=== PATIENT | female | born 1980 | race Caucasian/White ===

== ENCOUNTER → 2016-04-04 | Day surgery (SDC) | payer OTHER ==
[~2016-04-04] MED LIST: DEXAMETHASONE 4 MG/ML VIAL ONE; FLU VACC QS 2016-17(3-64YR)/PF 0.5 ML SYR (FLUARIX QUAD) IM ONE; KETOROLAC 30 MG/1 ML SDV ONE; LIDOCAINE 1% 30 ML SDV MISC ONE; LIDOCAINE 2% 5 ML SDV ONE; MIDAZOLAM 2 MG/2 ML VIAL IVP ONE; PROPOFOL 200 MG/20 ML VIAL ONE; fentaNYL 100 MCG/2 ML INJ ONE
--- NOTE | 2016-04-04 12:36 | GOP ---
[f rep st] OPERATIVE REPORT DATE OF OPERATION: 04/04/2016 SURGEON: Jordyn Cardona MD LEGAL TRANSCRIPTIONIST: None. ANESTHESIA: Sedation. PREOPERATIVE DIAGNOSIS: Missed at 9 weeks gestation. POSTOPERATIVE DIAGNOSIS: Missed at 9 weeks gestation. PROCEDURE PERFORMED: Suction dilation and curettage. FINDINGS: 1. Products of conception. 2. demise at 9 weeks. SPECIMENS: Products of conception. ESTIMATED BLOOD LOSS: Less than 10 mL. INDICATIONS: The patient is a 36-year-old G2, P1 female who at 9 and 4/7 weeks gestation was noted to have a missed . Options were discussed with the patient. She desired surgical management. DESCRIPTION OF PROCEDURE: The patient was taken to the operating room. She was prepped and draped in normal sterile fashion in the high dorsal lithotomy position. A surgical timeout was performed, verifying the patient's name, date of , planned procedure, and site. The bivalve speculum was placed in the patient's vagina. The anterior aspect of the cervix was grasped with a single- tooth tenaculum. The patient received a paracervical block with 1% lidocaine 10 mL. The cervix was dilated to 9 mm. A curved 9 mm suction curette placed into the uterine cavity and the uterine contents were aspirated. Sharp endometrial curettage took place with the curette to ensure there were no retained products of conception. The suction curette was placed into the uterine cavity one last time to ensure there were products of conception. The bivalve speculum was then removed and the single-tooth tenaculum was removed. Hemostasis was obtained. Products were sent to pathology. The patient tolerated the procedure well. COMPLICATIONS: None. DISPOSITION: Stable to recovery. /[id number]/MODL MTDD
== END | disposition home or self-care (01) ==
LOC: FOBOP 05:54
PROVIDERS: ATTEND Obstetrics & Gynecology
PROC: 10D17ZZ Extraction of Products of Conception, Retained, Via Natural or Artificial Opening (ICD-10-PCS; principal; 2016-04-04)
DX: O02.1 Missed abortion (principal); O99.341 Other mental disorders complicating pregnancy, first trimester; O09.521 Supervision of elderly multigravida, first trimester; Z3A.09 9 weeks gestation of pregnancy; F41.8 Other specified anxiety disorders; F31.9 Bipolar disorder, unspecified
CPT/HCPCS: J1100; J1885; J2250; J2704; J3010

== ENCOUNTER 2016-07-03 20:12 | Emergency (ER) | payer OTHER ==
[2016-07-03 20:25] VITALS: BP 164/107; PULSE 86; RESP 16; TEMP 98.2; O2SAT 95
--- NOTE | 2016-07-03 20:30 | EDPHY ---
HPI/HX/ROS/PE/MDM Narrative: CHIEF COMPLAINT: Foreign object in nose HISTORY OF PRESENT ILLNESS: The patient is a 36-year-old female presenting with a possible foreign body in her nose. The patient was out on a run and when she stopped running she started continuously sneezing. She feels like something is stuck in the right naris. She has a poking and tickling sensation. The right side of her nose continues to drain. She is able to breath normally. She wonders if a yolanda or a bug got into her nose. REVIEW OF SYSTEMS: Aside from elements discussed in the HPI, a comprehensive 10-point review of systems was reviewed and is negative. PAST MEDICAL HISTORY: Bipolar disorder. SOCIAL HISTORY: . Lives in [place]. VITAL SIGNS: Reviewed by me GENERAL: Well-developed, well-nourished, resting comfortably in no respiratory distress. HEENT: Atraumatic. Eyes: No icterus, no injection. Mouth: moist mucous membranes. No erythema or lesions. Nose: Right naris was examined utilizing the nasal speculum, headlamp, and suction. No foreign bodies visualized. There is a very tender, swollen, pale area of the mucosa on the lateral aspect which is where the patient reports feeling her discomfort. EXTREMITIES: Normal range of motion. NEURO: Alert and oriented, grossly nonfocal. SKIN: Warm and dry, no rash. PSYCHIATRIC: Normal mentation, no agitation. Portions of this note were transcribed by a faculty i on call medical assistant. I personally performed a history, physical exam, medical decision making, and confirmed accuracy of information the transcribed note. ED Course: The patient presents with a foreign body sensation in her right naris. I used a fiberoptic headlamp to inspect the patients naris. No foreign body visualized. The mucosal membrane appears white and swollen. I recommend the patient use antibiotic ointment and Afrin to decrease swelling. I referred the patient to ENT for continued symptoms. MDM: 36-year-old female who presents following a run where she felt like something became lodged in her nose. She has a pricking sensation and reports that the nose continues to run. On examination it appears that perhaps there was an area of irritation or a bug bite which occurred along the lateral nasal mucosa. There is a swollen tender area. I do not see a foreign body. Patient was given instructions regarding local care of the area. She will follow up with ENT if she is not improving rapidly. General Time Seen by Provider: 07/03/16 20:21 Initial Vital Signs: Initial Vital Signs Temperature (C) 36.8 C 07/03/16 20:20 Heart Rate 86 07/03/16 20:20 Respiratory Rate 16 07/03/16 20:20 Blood Pressure 164/107 H 07/03/16 20:20 O2 Sat (%) 95 07/03/16 20:20 O2 Delivery Mode Room Air Allergies/Adverse Reactions: amoxicillin [Amoxicillin] Allergy (Mild, Verified 03/25/16 19:14) Penicillins Allergy (Mild, Verified 03/25/16 19:14) prochlorperazine edisylate [From Compazine] Allergy (Mild, Verified 03/25/16 19: 14) prochlorperazine maleate [From Compazine] Allergy (Mild, Verified 03/25/16 19:14 ) Sulfa (Sulfonamide Antibiotics) Allergy (Mild, Verified 03/25/16 19:14) hydrocodone bitartrate [From Vicodin] Allergy (Verified 03/25/16 19:14) metoclopramide HCl [From Reglan] Allergy (Verified 03/25/16 19:14) ondansetron Allergy (Verified 03/25/16 19:14) ondansetron HCl [From Zofran (as hydrochloride)] Allergy (Verified 03/25/16 19: 14) oxycodone HCl [From Percocet] Allergy (Verified 03/25/16 19:14) promethazine HCl [From Phenergan] Allergy (Verified 03/25/16 19:14) Home Medications: Medication Instructions Recorded lamOTRIGine [Lamotrigine] 150 mg PO HS 10/22/12 Departure - Departure Disposition: Home, Routine, Self-Care Clinical Impression: Inflammation of nasal mucosa Qualifiers: Rhinitis type: unspecified Qualified Code(s): J31.0 - Chronic rhinitis Condition: Good Instructions: Oxymetazoline (Into the nose), Allergic Rhinitis (ED) Additional Instructions: 1. Use a Q-tip with antibiotic cream in your right nostril. 2. Try Afrin nasal spray to help with swelling. 3. You have been referred to [facility] ear, nose, [facility] specialists. Please followup with ENT if you continue to have concerns tomorrow. Referrals: Alecia Lockwood MD [Primary Care Provider] - As per Instructions Carlos Calabrese MD [Medical Doctor] - As per Instructions Aye Barbour MD [Medical Doctor] - As per Instructions
== END 2016-07-03 20:52 | disposition home or self-care (01) ==
DX: J31.0 Chronic rhinitis (principal)

== ENCOUNTER 2016-09-14 16:33 | Emergency (ER) | payer OTHER ==
[2016-09-14 16:40] VITALS: O2SAT 98
[2016-09-14] MEDS ORDERED: NS 1,000 ML IV ONE (16:57)
[2016-09-14 17:16] LABS: % IMMATURE GRANULYOCYTES 0.4 % (0.0-1.1); ABSOLUTE IMMATURE GRANULOCYTES 0.04 10^3/uL (0.00-0.10); ADD DIFF? NO; ADD MORPH? NO; ADD SCAN? NO; ATYPICAL LYMPHOCYTE FLAG 10 (0-99); FRAGMENT RBC FLAG 0 (0-99); HEMATOCRIT 39.8 % (38.0-47.0); HEMOGLOBIN 13.5 g/dL (12.6-16.3); LEFT SHIFT FLG 0 (0-99); LIPEMIA HEMOLYSIS FLAG 90 (0-99); MEAN CELL HEMOGLOBIN 30.5 pg (27.9-34.1); MEAN CELL HEMOGLOBIN CONCENTR. 33.9 g/dL (32.4-36.7); MEAN CELL VOLUME 89.8 fL (81.5-99.8); MEAN PLATELET VOLUME 10.2 fL (8.7-11.7); PLATELET CLUMPS FLAG 0 (0-99); PLATELET COUNT 226 10^3/uL (150-400); RED BLOOD CELL COUNT 4.43 10^6/uL (4.18-5.33); RED CELL DISTRIBUTION WIDTH 12.2 % (11.5-15.2)
[2016-09-14 17:37] LABS: ANION GAP 10 mEq/L (8-16); CALCIUM 9.6 mg/dL (8.5-10.4); CARBON DIOXIDE 21 mEq/l (22-31); CHLORIDE 104 mEq/L (97-110); CREATININE 0.6 mg/dL (0.6-1.0); GLOMERULAR FILTRATION RATE > 60; GLUCOSE 83 mg/dL (70-100); POTASSIUM 3.8 mEq/L (3.5-5.2); SODIUM 135 mEq/L (134-144)
--- NOTE | 2016-09-14 18:38 | EDPHY ---
H & P Time Seen by Provider: 09/14/16 16:42 HPI/ROS: CHIEF COMPLAINT: Nausea, vomiting, dehydration HISTORY OF PRESENT ILLNESS: This is a 36-year-old female who reports that she is approximately 8 weeks presenting with ongoing nausea and vomiting. 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 She is , prior . Reports having significant nausea vomiting previously. No fevers or chills. No cough. No diarrhea. No abdominal pain, no cramping, no vaginal bleeding. No urinary complaints. REVIEW OF SYSTEMS: Aside from elements discussed in the HPI, a comprehensive 10-point review of systems was reviewed and is negative. PAST MEDICAL HISTORY: Bipolar disorder, SOCIAL HISTORY: Nonsmoker. Here with a friend. VITAL SIGNS Reviewed by me. GENERAL: Well-developed, well-nourished, resting comfortably in no respiratory distress. Complaining of significant nausea. HEENT: Atraumatic. Eyes: No icterus, no injection. Mouth: Slightly dry mucous membranes. No erythema or lesions. Neck: supple with no adenopathy. LUNGS: Clear to auscultation bilaterally, no wheezes, rhonchi or rales. CARDIAC: Regular rate and rhythm, no rubs, murmurs or gallops. ABDOMEN: Soft, nontender, nondistended, bowel sounds normal. BACK: No CVA tenderness. EXTREMITIES: No trauma. No edema. Range of motion is normal throughout. NEURO: Alert and oriented, grossly nonfocal. SKIN: Warm and dry, no rash. PSYCHIATRIC: Normal mentation, no agitation. Smoking Status: Never smoked Constitutional: Initial Vital Signs Temperature (C) 36.8 C 09/14/16 16:38 Heart Rate 58 L 09/14/16 16:38 Respiratory Rate 16 09/14/16 16:38 Blood Pressure 117/93 H 09/14/16 16:38 O2 Sat (%) 98 09/14/16 16:38 O2 Delivery Mode Room Air Allergies/Adverse Reactions: ondansetron HCl [From Zofran (as hydrochloride)] Allergy (Intermediate, Verified 09/17/16 11:47) twitch,itchy,tachycardia promethazine HCl [From Phenergan] Allergy (Intermediate, Verified 09/17/16 11:47 ) amoxicillin [Amoxicillin] Allergy (Mild, Verified 09/17/16 11:47) metoclopramide HCl [From Reglan] Allergy (Mild, Verified 09/17/16 11:47) shakey legs, itch Penicillins Allergy (Mild, Verified 09/17/16 11:47) prochlorperazine edisylate [From Compazine] Allergy (Mild, Verified 09/17/16 11: 47) prochlorperazine maleate [From Compazine] Allergy (Mild, Verified 09/17/16 11:47 ) Sulfa (Sulfonamide Antibiotics) Allergy (Mild, Verified 09/17/16 11:47) hydrocodone bitartrate [From Vicodin] Allergy (Verified 09/17/16 11:47) ondansetron Allergy (Verified 09/17/16 11:47) oxycodone HCl [From Percocet] Allergy (Verified 09/17/16 11:47) Home Medications: Medication Instructions Recorded Ondansetron Odt [Zofran Odt 4 mg 4 mg PO Q4 PRN 09/19/16 (*)] diphenhydrAMINE [Benadryl 25 MG 25 mg PO DAILY PRN 09/19/16 (*)] lamoTRIgine [Lamictal] 150 mg PO HS 09/19/16 Medical Decision Making ED Course/Re-evaluation: IV was established in the patient received normal saline. Beta HCG was checked and is 99,881. Patient received Benadryl for her nausea. Labs demonstrate CO2 21. Patient's nausea was improved. She received a 2nd L normal saline was able to tolerate oral sips and small bites of crackers. We discussed symptomatic treatment for hyperemesis. She was encouraged to use B6 supplements. Differential Diagnosis: Differential diagnosis of the patient's nausea and vomiting was considered including but not limited to gastroenteritis, gastritis, alcohol intoxication, withdrawal symptoms, hyperemesis gravidarum, vomiting in , intraabdominal processes including appendicitis, pancreatitis, bowel obstruction and medication side effect. - Data Points Laboratory Results: Laboratory Results 09/14/16 17:10 09/14/16 17:10 Medications Given: Discontinued Medications Diphenhydramine HCl (Benadryl Injection) 25 mg IVP EDNOW ONE Stop: 09/14/16 17:30 Last Admin: 09/14/16 17:55 Dose: 25 mg Sodium Chloride (Ns) 1,000 mls @ 0 mls/hr IV ONCE ONE; Wide Open PRN Reason: Protocol Stop: 09/14/16 16:58 Last Admin: 09/14/16 17:00 Dose: 1,000 mls Departure - Departure Disposition: Home, Routine, Self-Care Clinical Impression: Hyperemesis gravidarum Nausea and vomiting Qualifiers: Vomiting type: unspecified Vomiting Intractability: non-intractable Qualified Code(s): R11.2 - Nausea with vomiting, unspecified Condition: Good Instructions: Pyridoxine (By mouth), Hyperemesis Gravidarum (ED) Additional Instructions: Please follow up with Dr. Slava Oseguera as previously scheduled. You been given information regarding nausea and vomiting in and dehydration. I recommend Benadryl 25 mg every 6-8 hours to control nausea. I also recommend pyridoxine (vitamin B6) 10-25 mg orally every 6-8 hours. Return to the emergency department or seek care urgently if you are continue to have significant vomiting despite the above measures, develops a fever, or other concerns. Referrals: Alecia Lockwood MD [Primary Care Provider] - As per Instructions
[2016-09-14 19:11] VITALS: BP 119/49; PULSE 55; RESP 14
[2016-09-14 19:23] VITALS: TEMP 98.6
== END 2016-09-14 19:24 | disposition home or self-care (01) ==
DX: O21.0 Mild hyperemesis gravidarum (principal); Z3A.08 8 weeks gestation of pregnancy
CPT/HCPCS: 96374; J1200

== ENCOUNTER 2016-09-17 10:18 | Emergency (ER) | payer OTHER ==
[2016-09-17 10:29] VITALS: BP 135/72; PULSE 70; RESP 18; TEMP 98.4; O2SAT 97
== END 2016-09-17 11:00 | disposition left against medical advice (07) ==
DX: Z53.21 Procedure and treatment not carried out due to patient leaving prior to being seen by health care provider (principal)

== ENCOUNTER 2016-09-17 11:41 | Emergency (ER) | payer OTHER ==
[2016-09-17] MEDS ORDERED: D5W LR 1,000 ML IV SCH (15:00)
[2016-09-17] MEDS ORDERED: LORazepam 2 MG/ML INJ IVP ONE (15:09)
[2016-09-17] MEDS ORDERED: D5W LR 1,000 ML IV ONE (15:15)
--- NOTE | 2016-09-17 15:32 | EDPHY ---
H & P Time Seen by Provider: 09/17/16 14:20 HPI/ROS: CHIEF COMPLAINT: 8 weeks , nausea vomiting HISTORY OF PRESENT ILLNESS: 36-year-old female presents to the emergency department by private vehicle with multiple episodes of nausea and vomiting. She is approximately 8 weeks with LMP of 07/22/2016. She is unsure of her due date. She is followed by Dr. Jordyn Cardona who has performed recent laboratory studies and ultrasound on this patient. She was sent to the emergency department for IV hydration specifically with D5 LR and Dr. Slava Cardona I recommended that we give the patient IV lorazepam. Patient has no abdominal pain. No vaginal discharge. No vaginal bleeding. No back pain. She is 2 para 1 AB1 and had a spontaneous miscarriage at 13 weeks with her 2nd . Denies back pain. No chest pain or difficulty breathing. No urinary symptoms. REVIEW OF SYSTEMS: Constitutional: No fever, no chills. Eyes: No double or blurry vision. ENT: No sore throat. Respiratory: No cough, no shortness of breath. Cardiac: No chest pain. Gastrointestinal: Nausea and vomiting, 12 times today. No abdominal pain or diarrhea. Genitourinary: Urinating normally. No dysuria. Musculoskeletal: No neck or back pain. Skin: No rashes. Neurological: No headache. Past Medical/Surgical History: 3 para 1 AB1 Social History: Smoking Status: Never smoked Physical Exam: General Appearance: Alert, no distress. No apparent distress. Vital signs are stable. Eyes: Pupils equal and round. Extraocular motions are all intact. ENT: Mouth: Mucous membranes moist Respiratory: No wheezing, rhonchi, or rales, lungs are clear to auscultation. Cardiovascular: Regular rate and rhythm. Gastrointestinal: Abdomen is soft and nontender, no masses, no rebound or guarding, bowel sounds normal. No CVA tenderness bilaterally. Neurological: Alert and oriented x 3, cranial nerves II through XII grossly intact Skin: Warm and dry, no rashes. Musculoskeletal: Nontender to palpate along the cervical, thoracic or lumbar spine. Neck is supple. Extremities: Full range of motion and no peripheral edema. Psychiatric: Patient is oriented X 3, there is no agitation. Constitutional: Initial Vital Signs Temperature (C) 36.4 C 09/17/16 11:47 Heart Rate 75 09/17/16 11:47 Respiratory Rate 18 09/17/16 11:47 Blood Pressure 126/51 H 09/17/16 11:47 O2 Sat (%) 98 09/17/16 11:47 O2 Delivery Mode Room Air Allergies/Adverse Reactions: ondansetron HCl [From Zofran (as hydrochloride)] Allergy (Intermediate, Verified 09/17/16 11:47) twitch,itchy,tachycardia promethazine HCl [From Phenergan] Allergy (Intermediate, Verified 09/17/16 11:47 ) amoxicillin [Amoxicillin] Allergy (Mild, Verified 09/17/16 11:47) metoclopramide HCl [From Reglan] Allergy (Mild, Verified 09/17/16 11:47) shakey legs, itch Penicillins Allergy (Mild, Verified 09/17/16 11:47) prochlorperazine edisylate [From Compazine] Allergy (Mild, Verified 09/17/16 11: 47) prochlorperazine maleate [From Compazine] Allergy (Mild, Verified 09/17/16 11:47 ) Sulfa (Sulfonamide Antibiotics) Allergy (Mild, Verified 09/17/16 11:47) hydrocodone bitartrate [From Vicodin] Allergy (Verified 09/17/16 11:47) ondansetron Allergy (Verified 09/17/16 11:47) oxycodone HCl [From Percocet] Allergy (Verified 09/17/16 11:47) Home Medications: Medication Instructions Recorded lamOTRIGine [Lamotrigine] 150 mg PO HS 10/22/12 Medical Decision Making ED Course/Re-evaluation: An IV was established and the patient has D5 LR infusing. I explained the pros and cons of using IV Ativan for her nausea and vomiting. I explained the possible teratogenic risks associated with this with in first-trimester . I spoke with Dr. Jordyn Cardona who felt very comfortable giving this medication to the patient. This was explained to the patient and the patient agrees with IV lorazepam. Dr. Slava England has arranged for the patient to have lorazepam suppositories they are currently being compound by pharmacist. Patient received 2 L of D5 LR and 1 mg of Ativan IV. She was re-examined at 4: 20 p.m. and was feeling much better. She is comfortable being discharged home. She was instructed to have close follow-up with OBGYN as instructed. She will return to the emergency department if she develops recurring vomiting, decreased urine output, or if she feels worse in any way. Differential Diagnosis: Including but not limited to hyperemesis gravidarum, dehydration, kidney injury , electrolyte abnormality, spontaneous miscarriage, intrauterine - Data Points Medications Given: Discontinued Medications Dextrose/Lactated Ringer's (D5w Lr) 1,000 mls @ 0 mls/hr IV EDNOW ONE PRN Reason: Wide Open Stop: 09/17/16 15:16 Last Admin: 09/17/16 15:47 Dose: 1,000 mls Lorazepam (Ativan Injection) 1 mg IVP EDNOW ONE Stop: 09/17/16 15:10 Last Admin: 09/17/16 15:20 Dose: 1 mg Departure - Departure Disposition: Home, Routine, Self-Care Clinical Impression: Hyperemesis gravidarum, Dehydration Condition: Good Instructions: Hyperemesis Gravidarum (ED), Dehydration (ED) Additional Instructions: Clear fluids and then slowly advance diet as tolerated. 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
[2016-09-17 16:36] VITALS: BP 118/75; PULSE 70; RESP 14; TEMP 98.4; O2SAT 94
== END 2016-09-17 16:35 | disposition home or self-care (01) ==
DX: O21.1 Hyperemesis gravidarum with metabolic disturbance (principal); E86.0 Dehydration; Z3A.01 Less than 8 weeks gestation of pregnancy
CPT/HCPCS: 96374; J2060

== ENCOUNTER 2016-09-19 09:51 | Inpatient (IN) | payer OTHER ==
[2016-09-19] MEDS ORDERED: ACETAMINOPHEN 325 MG TAB PO PRN (10:30)
[2016-09-19] MEDS: D5W 1/2 NS 1,000 ML IV SCH ×2 (12:20→18:22)
[2016-09-19] MEDS: ONDANSETRON 4 MG/2 ML VIAL IVP PRN ×3 (12:22→22:25)
[2016-09-19 15:05] LABS: ALANINE AMINOTRANSFERASE 26 IU/L (9-52); ALBUMIN 3.6 g/dL (3.5-5.0); ALKALINE PHOSPHATASE 37 IU/L (38-126); ANION GAP 11 mEq/L (8-16); ASPARTATE AMINOTRANSFERASE 24 IU/L (14-46); BILIRUBIN,TOTAL 0.6 mg/dL (0.1-1.4); CALCIUM 8.4 mg/dL (8.5-10.4); CARBON DIOXIDE 20 mEq/l (22-31); CHLORIDE 104 mEq/L (97-110); CREATININE 0.6 mg/dL (0.6-1.0); GLOMERULAR FILTRATION RATE > 60; GLUCOSE 86 mg/dL (70-100); POTASSIUM 3.5 mEq/L (3.5-5.2); SODIUM 135 mEq/L (134-144)
--- NOTE | 2016-09-19 18:42 | GHP ---
[f rep st] HISTORY AND PHYSICAL DATE OF ADMISSION: 09/19/2016 CHIEF COMPLAINT: Nausea and vomiting in . HISTORY OF PRESENT ILLNESS: The patient is a 36-year-old, G3 para 1-0-1-1 female who is at 8 weeks' gestation who presents with severe nausea and vomiting. She had already had ER admission for IV fl uids 2 times this week. The patient is allergic to Compazine and Phenergan so it makes it difficult to treat her nausea adequately. She states she is not able to tolerate any oral intake and has not yet urinated today. She feels weak and dehydrated. On exam she is ill appearing. PAST MEDICAL HISTORY: Significant for mood disorder. OBSTETRICAL HISTORY: One previous and 1 miscarriage. SURGICAL HISTORY: Noncontributory. FAMILY HISTORY: Noncontributory. REVIEW OF SYSTEMS: Positive for nausea, vomiting and fatigue. PHYSICAL EXAMINATION: VITAL SIGNS: Blood pressure 120/80, pulse is 56. Her weight is 133 pounds w hich is essentially the same as it was 5 months ago. She has a viable measuring 8 weeks 5 days with heart tones in the 140s done on pelvic ultrasound. : She has no vaginal bleedin g. She has normal external female genitalia. ASSESSMENT AND PLAN: This is a 36-year-old female with nausea and vomiting in , unable to tolerate p.o. intake. Recommend admission for IV fluid hydration and IV medication management with IV Zofran and Benadryl which the patient agrees to. /[id number]/MODL
[2016-09-19] MEDS: lamoTRIgine 100 MG TAB PO SCH (22:27)
[2016-09-20] MEDS: D5W 1/2 NS 1,000 ML IV SCH ×2 (02:38→17:36)
[2016-09-20] MEDS: ONDANSETRON 4 MG/2 ML VIAL IVP PRN ×5 (02:46→22:15)
--- NOTE | 2016-09-20 10:26 | SOAPPROG ---
SOAP Progress Note Assessment/Plan: Assessment: 36 yo @ 8 weeks gestation, with severe nausea and vomiting of , doing better. Plan: 09/20/16 10:25 Continue IVF. Advace diet to clears as tolerated. Anticipate switch to oral antiemetics tomorrow. Subjective: 36 yo @ 8 weeks gestation, with severe nausea and vomiting of , doing better. Objective: Vital Signs Temp Pulse Resp BP Pulse Ox 36.7 C 52 L 18 114/63 95 09/20/16 08:00 09/20/16 08:00 09/20/16 08:00 09/20/16 08:00 09/20/16 08:00 Laboratory Results 09/19/16 14:30 09/19/16 09/20/16 09/21/16 05:59 05:59 05:59 Intake Total 2178 Balance 2178 Physical Exam - Physical Exam General Appearance: no apparent distress Respiratory: lungs clear Cardiac/Chest: regular rate, rhythm Abdomen: non-tender Skin: warm/dry Extremities: non-tender Neuro/Psych: oriented x 3 ICD10 Worksheet Patient Problems: Problems Problem Status Onset Gestational hypertension Acute Hyperemesis gravidarum Acute Nausea and vomiting Acute
[2016-09-20] MEDS: SCOPOLAMINE HYDROBROMIDE 1.5 MG PATCH TD SCH (11:28)
[2016-09-20] MEDS: lamoTRIgine 100 MG TAB PO SCH ×2 (13:30→22:14)
[2016-09-21] MEDS: D5W 1/2 NS 1,000 ML IV SCH ×4 (01:26→23:41)
[2016-09-21] MEDS: ONDANSETRON 4 MG/2 ML VIAL IVP PRN ×5 (06:18→23:35)
--- NOTE | 2016-09-21 10:10 | SOAPPROG ---
SOAP Progress Note Assessment/Plan: Assessment: 36 yo @ 8 weeks gestation, with severe nausea and vomiting of , doing better. Plan: Advace diet to regular as tolerated. Anticipate switch to oral antiemetics tomorrow. Discharge likely home on Thursday. 09/21/16 10:09 Subjective: 36 yo @ 8 weeks gestation, with severe nausea and vomiting of , doing derick-no vomiting yesterday but had diarrhea x 5. Objective: Vital Signs Temp Pulse Resp BP Pulse Ox 36.6 C 59 L 16 124/77 H 97 09/21/16 08:00 09/21/16 08:00 09/21/16 08:00 09/21/16 08:00 09/21/16 08:00 Laboratory Results 09/19/16 14:30 09/20/16 09/21/16 09/22/16 05:59 05:59 05:59 Intake Total 2178 2250 Balance 2178 2250 Physical Exam - Physical Exam General Appearance: no apparent distress Abdomen: non-tender Neuro/Psych: oriented x 3 ICD10 Worksheet Patient Problems: Problems Problem Status Onset Gestational hypertension Acute Hyperemesis gravidarum Acute Nausea and vomiting Acute
[2016-09-21] MEDS: ONDANSETRON DISINTEGRATING 4 MG TAB PO PRN (14:49)
[2016-09-21] MEDS: lamoTRIgine 100 MG TAB PO SCH (20:11)
[2016-09-22] MEDS: ONDANSETRON 4 MG/2 ML VIAL IVP PRN (06:27)
[2016-09-22] MEDS: D5W 1/2 NS 1,000 ML IV SCH ×2 (07:53→16:26)
--- NOTE | 2016-09-22 08:53 | SOAPPROG ---
SOAP Progress Note Assessment/Plan: Assessment: 36 yo @ 9 weeks gestation, with severe nausea and vomiting of , doing better. Plan: Add ensure to regular diet today. Switch to oral zofran today, will try oral benadryl and ativan for saliva production. Anticipate discharge tomorrow/Thursday. 09/22/16 08:51 Subjective: 36 yo @ 9 weeks gestation, with severe nausea and vomiting of , doing better. No vomiting yesterday, main complaint is saliva production which makes her feels nauseated. Objective: Vital Signs Temp Pulse Resp BP Pulse Ox 37.1 C 60 18 128/78 H 98 09/22/16 08:00 09/22/16 08:00 09/22/16 08:00 09/22/16 08:00 09/22/16 08:00 Laboratory Results 09/19/16 14:30 09/21/16 09/22/16 09/23/16 05:59 05:59 05:59 Intake Total 2250 1100 Output Total 300 Balance 2250 800 Physical Exam - Physical Exam General Appearance: no apparent distress Respiratory: lungs clear Cardiac/Chest: regular rate, rhythm Abdomen: non-tender Skin: warm/dry Extremities: non-tender ICD10 Worksheet Patient Problems: Problems Problem Status Onset Gestational hypertension Acute Hyperemesis gravidarum Acute Nausea and vomiting Acute
[2016-09-22] MEDS: LORazepam 0.5 MG TAB PO PRN ×3 (09:09→21:26)
[2016-09-22] MEDS: diphenhydrAMINE 25 MG CAP PO PRN ×2 (10:18→17:53)
[2016-09-22] MEDS: ONDANSETRON DISINTEGRATING 4 MG TAB PO PRN ×3 (11:25→20:21)
[2016-09-22] MEDS: lamoTRIgine 100 MG TAB PO SCH (20:21)
[2016-09-23] MEDS: SCOPOLAMINE HYDROBROMIDE 1.5 MG PATCH TD SCH (07:54)
[2016-09-23] MEDS: PATCH REMOVAL 1 EA PATCH TD SCH (07:55)
[2016-09-23] MEDS: ONDANSETRON DISINTEGRATING 4 MG TAB PO PRN ×2 (07:59→12:08)
[2016-09-23] MEDS: LORazepam 0.5 MG TAB PO PRN (07:59)
[2016-09-23] MEDS ORDERED: LACTULOSE 20 GM/30 ML UDCUP PO PRN (09:35)
[2016-09-23] MEDS ORDERED: POLYETHYLENE GLYCOL 3350 17 GM PKT PO PRN (09:35)
[2016-09-23] MEDS ORDERED: MAGNESIUM HYDROXIDE 30 ML UDCUP PO PRN (09:35)
[2016-09-23] MEDS ORDERED: BISACODYL 10 MG SUPP PR PRN (09:35)
--- NOTE | 2016-09-23 09:35 | SOAPPROG ---
SOAP Progress Note Assessment/Plan: Assessment: 36 yo @ 9 weeks gestation, with severe nausea and vomiting of , doing better overall but had missed a dose of antiemetics last night, feeling worse this morning. Plan: Continue oral meds and food, will stop IVF this evening, if able to tolerated all oral meds and food and fluids, will anticipate discharge tomorrow. 09/23/16 09:33 Subjective: 36 yo @ 9 weeks gestation, with severe nausea and vomiting of , doing better overall but had missed a dose of antiemetics last night, feeling worse this morning. Objective: Vital Signs Temp Pulse Resp BP Pulse Ox 36.7 C 57 L 14 115/63 97 09/23/16 07:43 09/23/16 07:43 09/23/16 07:43 09/23/16 07:43 09/23/16 07:43 Laboratory Results 09/19/16 14:30 09/22/16 09/23/16 09/24/16 05:59 05:59 05:59 Intake Total 1100 Output Total 300 Balance 800 Physical Exam - Physical Exam General Appearance: no apparent distress Respiratory: lungs clear Cardiac/Chest: regular rate, rhythm Abdomen: non-tender Skin: warm/dry Extremities: non-tender Neuro/Psych: oriented x 3 ICD10 Worksheet Patient Problems: Problems Problem Status Onset Gestational hypertension Acute Hyperemesis gravidarum Acute Nausea and vomiting Acute
[2016-09-23] MEDS: D5W 1/2 NS 1,000 ML IV SCH ×2 (11:19→19:11)
[2016-09-23] MEDS: ONDANSETRON 4 MG/2 ML VIAL IVP PRN ×3 (14:14→22:59)
[2016-09-23] MEDS: LORazepam 2 MG/ML INJ IVP PRN ×2 (14:59→20:37)
[2016-09-23] MEDS: SENNOSIDES/DOCUSATE SODIUM TAB PO SCH (22:41)
[2016-09-23] MEDS: lamoTRIgine 100 MG TAB PO SCH (22:41)
[2016-09-24] MEDS: LORazepam 2 MG/ML INJ IVP PRN ×5 (00:35→20:26)
[2016-09-24] MEDS: ONDANSETRON 4 MG/2 ML VIAL IVP PRN ×5 (03:30→22:35)
[2016-09-24] MEDS: D5W 1/2 NS 1,000 ML IV SCH (04:49)
[2016-09-24] MEDS: ONDANSETRON DISINTEGRATING 4 MG TAB PO PRN (08:47)
[2016-09-24] MEDS: SENNOSIDES/DOCUSATE SODIUM TAB PO SCH ×2 (11:43→22:15)
--- NOTE | 2016-09-24 12:28 | SOAPPROG ---
SOAP Progress Note Assessment/Plan: Assessment: 36 yo @ 9 weeks gestation, with severe nausea and vomiting of , doing better overall but had missed a dose of antiemetics last night, feeling worse this morning. Plan: Had setback with nausea and vomiting, transition back to IV today. 09/24/16 12:26 Subjective: 36 yo @ 9 weeks gestation, with severe nausea and vomiting of , doing better overall but had missed a dose of antiemetics last night, feeling worse this morning. Objective: Vital Signs Temp Pulse Resp BP Pulse Ox 37.0 C 68 17 113/64 94 09/24/16 08:00 09/24/16 08:00 09/24/16 08:00 09/24/16 08:00 09/24/16 08:00 Laboratory Results 09/19/16 14:30 09/23/16 09/24/16 09/25/16 05:59 05:59 05:59 Intake Total 2200 Output Total 450 Balance 1750 Physical Exam - Physical Exam General Appearance: no apparent distress Respiratory: lungs clear Cardiac/Chest: regular rate, rhythm Abdomen: non-tender Skin: warm/dry Extremities: non-tender Neuro/Psych: oriented x 3 ICD10 Worksheet Patient Problems: Problems Problem Status Onset Gestational hypertension Acute Hyperemesis gravidarum Acute Nausea and vomiting Acute
[2016-09-24] MEDS: D5W LR 1,000 ML IV SCH (13:04)
[2016-09-24] MEDS: lamoTRIgine 100 MG TAB PO SCH ×2 (22:14→23:33)
[2016-09-25] MEDS: LORazepam 2 MG/ML INJ IVP PRN ×6 (00:35→23:33)
[2016-09-25] MEDS: ONDANSETRON 4 MG/2 ML VIAL IVP PRN ×6 (02:35→23:33)
[2016-09-25] MEDS: D5W LR 1,000 ML IV SCH ×3 (06:17→22:23)
[2016-09-25] MEDS: SENNOSIDES/DOCUSATE SODIUM TAB PO SCH ×2 (09:43→20:42)
[2016-09-25] MEDS: lamoTRIgine 100 MG TAB PO SCH (20:47)
[2016-09-26] MEDS: LORazepam 2 MG/ML INJ IVP PRN ×2 (03:56→08:55)
[2016-09-26] MEDS: ONDANSETRON 4 MG/2 ML VIAL IVP PRN ×3 (03:56→16:41)
[2016-09-26] MEDS: D5W LR 1,000 ML IV SCH (06:14)
[2016-09-26] MEDS: SENNOSIDES/DOCUSATE SODIUM TAB PO SCH ×2 (10:30→20:56)
[2016-09-26] MEDS: PATCH REMOVAL 1 EA PATCH TD SCH (10:31)
[2016-09-26] MEDS: SCOPOLAMINE HYDROBROMIDE 1.5 MG PATCH TD SCH (10:31)
[2016-09-26] MEDS: LORazepam 0.5 MG TAB PO PRN ×2 (12:40→18:56)
[2016-09-26] MEDS: ONDANSETRON DISINTEGRATING 4 MG TAB PO PRN ×2 (12:40→20:56)
--- NOTE | 2016-09-26 19:01 | SOAPPROG ---
[facility] Progress Note Assessment/Plan: Assessment: HD#8 with hyperemesis of 1st trimester Overall improving slowly Plan: Continue current regimen: zofran, benadryl, ativan. Plan is alternate IV and po today, try some food today, continue taking in liquids, try for all po antiemetics tomorrow Home when tolerating po entiemetics and oral intake, earliest Thursday if meeting this milestones 09/26/16 19:00 Subjective: So far feeling well today. Already made plan with Dr. RAMOS to alternate po and IV meds today, then try all po tomorrow, and then consider discharge on Thursday. Did throw up last night. Working with outbound telemarketing representative to find some foods that sound good to her and will sit well on her stomach. No cramping or bleeding. Objective: Vital Signs Temp Pulse Resp BP Pulse Ox 36.6 C 57 L 16 106/54 L 97 09/26/16 15:01 09/26/16 15:01 09/26/16 15:01 09/26/16 15:01 09/26/16 15:01 Laboratory Results 09/19/16 14:30 09/25/16 09/26/16 09/27/16 05:59 05:59 05:59 Intake Total 1550 3011 734 Balance 1550 3011 734 Gen: NAD, alert, awake Resp: unlabored CV: RRR Abd: soft, nontender Ext: no edema ICD10 Worksheet Patient Problems: Problems Problem Status Onset Gestational hypertension Acute Hyperemesis gravidarum Acute Nausea and vomiting Acute
[2016-09-26] MEDS: lamoTRIgine 100 MG TAB PO SCH (20:56)
[2016-09-27] MEDS: LORazepam 0.5 MG TAB PO PRN ×2 (01:16→17:09)
[2016-09-27] MEDS: ONDANSETRON DISINTEGRATING 4 MG TAB PO PRN ×5 (05:53→21:42)
[2016-09-27] MEDS: SENNOSIDES/DOCUSATE SODIUM TAB PO SCH ×2 (10:31→21:42)
--- NOTE | 2016-09-27 11:43 | SOAPPROG ---
[facility] Progress Note Assessment/Plan: Assessment: HD#9 with hyperemesis of 1st trimester Overall improving slowly, but feels worse this AM Plan: Continue current regimen: zofran, benadryl, ativan. Try po if possible, IV prn Plan of care made with patient that if she has another setback today will try steroid burst which has some evidence of effectiveness and overall good safety profile. Would plan hydrocortisone 100 mg IV BID. Then oral prednisone 40 mg x 1 day, 20 x 3 days, 10 mg x 3 days, 5 mg x 7 days. Home when tolerating po entiemetics and oral intake, earliest Thursday if meeting this milestones Subjective: [place] well yesterday, ate some potatoes and yogurt. Off IV fluids. However now this AM getting more nauseous again after only po meds, spitting up. Thinks she may be able to get control of this if she has suction for her spit and is able to keep down a popsicle Objective: Vital Signs Temp Pulse Resp BP Pulse Ox 37.6 C 53 L 16 109/48 L 96 09/27/16 08:00 09/27/16 08:00 09/27/16 08:00 09/27/16 08:00 09/27/16 08:00 Laboratory Results 09/19/16 14:30 09/26/16 09/27/16 09/28/16 05:59 05:59 05:59 Intake Total 3011 733 Balance 3011 739 Gen: sitting on couch with bucket Abd: soft, nontender Ext: no edema ICD10 Worksheet Patient Problems: Problems Problem Status Onset Gestational hypertension Acute Hyperemesis gravidarum Acute Nausea and vomiting Acute
[2016-09-27] MEDS: lamoTRIgine 100 MG TAB PO SCH (21:42)
[2016-09-27 22:49] VITALS: RESP 16; O2SAT 97
[2016-09-28] MEDS: ONDANSETRON DISINTEGRATING 4 MG TAB PO PRN (07:31)
[2016-09-28 07:49] VITALS: BP 105/56; PULSE 57; TEMP 99
[2016-09-28] MEDS: SENNOSIDES/DOCUSATE SODIUM TAB PO SCH (10:32)
--- NOTE | 2016-09-28 10:57 | GDS ---
[f rep st] DISCHARGE SUMMARY ADMISSION DIAGNOSIS: Hyperemesis gravidarum, at 8 weeks 3 days gestational age. DISCHARGE DIAGNOSIS: Hyperemesis gravidarum, improved; 9 weeks 5 days gestational age. COMPLICATIONS: None. CONSULTATIONS: None. HOSPITAL COURSE: Patient is a 36-year-old, 3, para 1-0-1-1 at 8 weeks 3 days gestation who presents with severe nausea and vomiting. She has already had multiple ER admissions for IV fluids. She was admitted to the hospital for management of dehydration and nausea. She is allergic to Compazine and Phenergan so she was started on IV Zofran with her primary MEMBERSHIP SALES ADVISOR, Dr. Steven Cardona. Her nausea was also controlled with Ativan and Benadryl as needed. She initially received IV antiemetics and was doing well and was starting to transition to oral medications. However after missing 1 dose of medication, her symptoms worsened and she had to return back to IV antibiotics. Eventually she was able to transition from IV to oral antiemetics and on the day of discharge, she had her nausea controlled with all oral medications for greater than 36 hours, was tolerating adequate fluid intake and also tolerating small amounts of food. She denied any cramping or bleeding. She had a reassuring ultrasound at the time of admission. DISCHARGE MEDICATIONS: Zofran ODT 4 mg p.o. q.4 hours p.r.n. nausea, Benadryl 25 mg p.o. q.6 hours p.r.n. nausea of which she will buy over the counter. She already has a prescription at home for Ativan suppositories p.r.n. for nausea. DISCHARGE INSTRUCTIONS: Follow up with Dr. Jaime in the clinic as scheduled. Call for any worsening of symptoms or if you are unable to keep down water for 24 hours. /[id number]/MODL MTDD
== END 2016-09-28 13:50 | disposition home or self-care (01) | DRG 781 ==
LOC: INTOOBSV 10:25 → F3E 10:25 → OBSVTOIN 09-20 10:26 → F3E 09-25 14:40
PROVIDERS: ADMIT Obstetrics & Gynecology; ATTEND Obstetrics & Gynecology
DX: O21.0 Mild hyperemesis gravidarum (principal); Z3A.09 9 weeks gestation of pregnancy
CPT/HCPCS: G0378; J1200; J2060; J2405

== ENCOUNTER → 2016-12-16 | Outpatient (CLI) | payer OTHER | LOC: FIMAGING 12:14 | PROVIDERS: ATTEND Obstetrics & Gynecology | DX: O09.522 Supervision of elderly multigravida, second trimester (principal); O34.219 Maternal care for unspecified type scar from previous cesarean delivery; Z3A.21 21 weeks gestation of pregnancy; Z87.59 Personal history of other complications of pregnancy, childbirth and the puerperium ==

== ENCOUNTER → 2017-03-03 | Outpatient (CLI) | payer OTHER | LOC: FIMAGING 12:42 | PROVIDERS: ATTEND Obstetrics & Gynecology | DX: O09.523 Supervision of elderly multigravida, third trimester (principal); Z3A.32 32 weeks gestation of pregnancy ==

== ENCOUNTER → 2018-02-01 | Outpatient (CLI) | payer MEDICAID | LOC: FIMAGING 16:08 | PROVIDERS: ATTEND Obstetrics & Gynecology | DX: N83.01 Follicular cyst of right ovary (principal) ==